=== PATIENT | female | born 1980 | race Caucasian/White ===

== ENCOUNTER 2016-12-06 18:42 | Emergency (ER) | payer BC, OTHER ==
[~2016-12-06] VITALS: Ht 172.7 cm; Wt 120.3 kg
[~2016-12-06 18:42] MED LIST: DEPO150I IM; GLIP10 PO; GLUCTAB PO; HYZA100T6 PO; LORTA5 PO
[2016-12-06 18:58] VITALS: BP 200/120; PULSE 103; RESP 16; TEMP 98.4; O2SAT 97
[2016-12-06] MEDS ORDERED: CYCL1TAB29 PO ×2 (19:04→20:21)
[2016-12-06 19:11] VITALS: BP 191/106; PULSE 96; RESP 18; O2SAT 97
--- NOTE | 2016-12-06 20:18 | PD ---
HPI Chief Complaint: Pain: Acute or Chronic Time Seen by Provider: 19:41 Travel History International Travel<30 days: No Contact w/Intl Traveler<30days: No Traveled to known affect area: No History of Present Illness HPI The patient is a 36-year-old female with a history of pain over the medial scapula intermittently for 2 years. 2 weeks ago she completed a course of prednisone that she got at an urgent care center. She was also given a sling but she took off the sling after 1 day because it didn't fit right. She works at a desk, at a computer. She has diabetes but is not taking her diabetic medications because the insurance won't pay for it. Jovan Walsh's her primary care physician and she never called Jovan Walsh about this. She denies any direct trauma. This last episode is been particular bad for the last 4 days. Her blood sugars have been running over 200 at home. PFSH Past Medical History Cancer: No Diabetes: Yes Patient Takes Glucophage: No Diminished Hearing: No Genitourinary: Yes Hepatitis: No Hiatal Hernia: No Hypertension: Yes Kidney Stones: Yes Thyroid Disease: No Tetanus Vaccination: > 5 Years Influenza Vaccination: Yes ?: Not LMP: 11/29/16 : 2 Para: 2 Past Surgical History Abdominal Surgery: Yes ([facility] 2001) Cholecystectomy: Yes Pacemaker: No Social History Alcohol Use: No Tobacco Use: No (QUIT 2006) Substance Use: No Allergies-Medications (Allergen,Severity, Reaction): Coded Allergies: ibuprofen (Unverified Allergy, Severe, HIVES/RASH, 12/06/16) Reported Meds & Prescriptions Reported Meds & Active Scripts Active Reported Flexeril (Cyclobenzaprine HCl) 10 Mg Tab 10 Mg PO TID Review of Systems Except as stated in HPI: all other systems reviewed are Neg Physical Exam Narrative GENERAL: Well-nourished, well-developed patient in moderate apparent distress with her left subscapular pain. Her vital signs show blood pressure 200/120 with heart rate of 103 but otherwise are normal. SKIN: Focused skin assessment warm/dry. HEAD: Normocephalic. EYES: No scleral icterus. No injection or drainage. NECK: Supple, trachea midline. No JVD or lymphadenopathy. CARDIOVASCULAR: Regular rate and rhythm without murmurs, gallops, or rubs. RESPIRATORY: Breath sounds equal bilaterally. No accessory muscle use. GASTROINTESTINAL: Abdomen soft, non-tender, nondistended. MUSCULOSKELETAL: No cyanosis, or edema. There is tenderness to direct palpation over the medial left scapula, pressure in this area reproduces pain. Abduction beyond 90 of the left shoulder causes pain. BACK: Nontender without obvious deformity. No CVA tenderness. Data Data Last Documented VS Vital Signs Date Time Temp Pulse Resp B/P (MAP) Pulse Ox O2 Delivery O2 Flow Rate FiO2 12/06/16 19:11 96 18 191/106 (134) 97 Room Air 12/06/16 18:58 98.4 Orders Orders Blood Glucose (12/06/16 19:56) [facility] Medical Decision Making Medical Screen Exam Complete: Yes Emergency Medical Condition: Yes Medical Record Reviewed: Yes Differential Diagnosis Subscapular bursitis, muscle strain, noncompliance to medications, diabetes mellitus poor control Narrative Course The patient needs to follow-up with Dr. Jovan Walsh. She is allergic to ibuprofen and I cannot give her nonsteroidal anti-inflammatory medications. She has diabetes mellitus under poor control and prednisone is likely to make this much worse. She needs to get on her diabetic medications. I will give her wrist with a sling and have her follow-up with Dr. Jovan Walsh both for this pain and to control the diabetes. She will be given 5 days off work. Diagnosis Primary Impression: Subscapular bursitis Additional Impressions: Poorly controlled diabetes mellitus Noncompliance with medications Additional Instructions: Rest is very important. You can also try an ice pack. Follow-up with Dr. Jovan Walsh so that your diabetes is controlled. Consult orthopedics, they can inject this if they feel that it is beneficial. Med/Other Pt SpecificInfo: Prescription(s) given Scripts Cyclobenzaprine (Flexeril) 10 Mg Tab 10 MG PO TID for Muscle Spasm, #60 TAB 0 Refills Prov: Julian Shipley MD 12/06/16 Disposition: 01 DISCHARGE HOME Condition: Stable Julian Shipley MD Dec 06, 2016 20:18
[2016-12-06 20:44] VITALS: BP 199/102; PULSE 91; O2SAT 99
== END 2016-12-06 20:52 | disposition home or self-care (01) ==
LOC: PHED 18:42
DX: M75.52 Bursitis of left shoulder (principal); E11.65 Type 2 diabetes mellitus with hyperglycemia; Z91.14 Patient's other noncompliance with medication regimen
CPT/HCPCS: 99283